=== PATIENT | female | born 1965 | race Caucasian/White ===

== ENCOUNTER 2017-10-17 08:15 | Emergency (ER) | payer OTHER, BC ==
--- NOTE | 2017-10-17 09:34 | EDM.PDOC ---
<Jaye Barajas - Last Filed: 10/17/17 11:23> ED HPI GENERAL MEDICAL PROBLEM - General Chief Complaint: Lower Extremity Injury/Pain Stated Complaint: L LEG INJURY Time Seen by Provider: 10/17/17 08:33 Source of Information: Reports: Patient History Limitations: Reports: No Limitations - History of Present Illness INITIAL COMMENTS - FREE TEXT/NARRATIVE: Patient is a 51-year-old female who presents after a fall this morning around 0800 outside her work. She states she fell on the ice and twisted her left ankle. She is unsure of which way the ankle turned but she does reports falling onto the ankle. She denies hitting her head, hip or other extremities. She denies pain other then the left ankle. She has not tried to put weight on the ankle. She states that her pain is about 6/10 at rest and 8/10 if she tries to move it. Left Ankle Pain Score (Numeric/FACES): 8 - Related Data Allergies Allergy/AdvReac Type Severity Reaction Status Date / Time No Known Allergies Allergy Verified 10/17/17 08:31 Home Meds: Home Meds Aspirin [Ecotrin] 81 mg PO DAILY 10/17/17 [History] Cholecalciferol (Vitamin D3) [Vitamin D3] 400 unit PO DAILY 10/17/17 [History] Magnesium 200 mg PO DAILY 10/17/17 [History] Multivitamin [Multi-Vitamin Daily] 1 each PO DAILY 10/17/17 [History] Tamoxifen [Nolvadex] 20 mg PO DAILY 10/17/17 [History] oxyCODONE HCl/Acetaminophen [Percocet 5-325 mg Tablet] 1 - 2 each PO Q6HR PRN # 20 tablet 10/17/17 [Rx] Past Medical History HEENT History: Reports: Impaired Vision Gastrointestinal History: Reports: Other (See Below) Other Gastrointestinal History: ulcerative colitis Oncologic (Cancer) History: Reports: Breast - Infectious Disease History Infectious Disease History: Reports: Chicken Pox - Past Surgical History HEENT Surgical History: Reports: Oral Surgery Social & Family History - Tobacco Use Smoking Status *Q: Never Smoker - Caffeine Use Caffeine Use: Reports: Coffee - Recreational Drug Use Recreational Drug Use: No Review of Systems - Review of Systems Review Of Systems: See Below Constitutional: Reports: No Symptoms Respiratory: Reports: No Symptoms Cardiovascular: Reports: No Symptoms Musculoskeletal: Reports: Joint Swelling (left ankle), Other (left ankle pain) Skin: Reports: Bruising (left lateral ankle) Neurological: Denies: Numbness, Tingling Psychiatric: Reports: No Symptoms ED EXAM, GENERAL - Physical Exam Exam: See Below Exam Limited By: No Limitations General Appearance: Alert, WD/WN, No Apparent Distress Head: Atraumatic, Normocephalic Neck: Non-Tender Respiratory/Chest: No Respiratory Distress Cardiovascular: Regular Rate, Rhythm Peripheral Pulses: 2+: Posterior Tibial (L), Dorsalis Pedis (L) Extremities: Joint Swelling (left ankle), Other (left lateral ankle pain with minimal palpation, no pain in the left foot or proximal fibula, no range of motion due to pain) Neurological: Alert, Oriented, CN II-XII Intact, Normal Cognition Skin Exam: Ecchymosis (left ankle) Course - Vital Signs Last Recorded V/S: Last Vital Signs Temp 98.0 F 10/17/17 08:34 Pulse 98 10/17/17 08:34 Resp 18 10/17/17 08:34 BP 160/90 H 10/17/17 08:34 Pulse Ox 98 10/17/17 08:34 - Orders/Labs/Meds Orders: Active Orders 24 hr Category Date Time Status Peripheral IV Care [RC] . DIRECTED Care 10/17/17 10:20 Active Lactated Ringers [Ringers, Lactated] 1,000 ml Med 10/17/17 10:30 Active IV ASDIRECTED Sodium Chloride 0.9% [Saline Flush] Med 10/17/17 10:20 Active 10 ml FLUSH ASDIRECTED PRN Peripheral IV Insertion Adult [OM.PC] Routine Oth 10/17/17 10:20 Ordered Medication Orders Lactated Ringer's (Ringers, Lactated) 1,000 mls @ 100 mls/hr IV ASDIRECTED ARNAUD Last Admin: 10/17/17 10:45 Dose: 100 mls/hr Sodium Chloride (Saline Flush) 10 ml FLUSH ASDIRECTED PRN PRN Reason: Keep Vein Open Last Admin: 10/17/17 11:13 Dose: 10 ml Meds: Medications Generic Name Dose Route Start Last Admin Trade Name Freq PRN Reason Stop Dose Admin Lactated Ringer's 1,000 mls @ 100 mls/hr 10/17/17 10:30 10/17/17 10:45 Ringers, Lactated IV 100 mls/hr ASDIRECTED ARNAUD Administration Sodium Chloride 10 ml 10/17/17 10:20 10/17/17 11:13 Saline Flush FLUSH 10 ml ASDIRECTED PRN Administration Keep Vein Open Discontinued Medications Generic Name Dose Route Start Last Admin Trade Name Phongq PRN Reason Stop Dose Admin Fentanyl 100 mcg 10/17/17 10:21 10/17/17 10:50 Sublimaze IVPUSH 10/17/17 10:22 100 mcg ONETIME ONE Administration Fentanyl 50 mcg 10/17/17 11:02 10/17/17 11:07 Sublimaze IVPUSH 10/17/17 11:03 50 mcg ONETIME ONE Administration Fentanyl Confirm 10/17/17 11:08 10/17/17 11:13 Sublimaze Administered 10/17/17 11:09 Not Given Dose 100 mcg .ROUTE .STK-MED ONE Hydromorphone HCl 0.5 mg 10/17/17 11:20 10/17/17 11:25 Dilaudid IVPUSH 10/17/17 11:21 0.5 mg ONETIME ONE Administration Ketorolac Tromethamine 30 mg 10/17/17 11:20 10/17/17 11:26 Toradol IVPUSH 10/17/17 11:21 30 mg ONETIME ONE Administration Midazolam HCl 2 mg 10/17/17 10:21 10/17/17 11:13 Versed 1 Mg/Ml IVPUSH 10/17/17 10:22 Not Given ONETIME ONE Midazolam HCl Confirm 10/17/17 10:49 10/17/17 11:13 Versed 1 Mg/Ml Administered 10/17/17 10:50 Not Given Dose 6 mg .ROUTE .STK-MED ONE Midazolam HCl 2 mg 10/17/17 11:14 10/17/17 10:55 Versed 1 Mg/Ml IVPUSH 10/17/17 11:15 1 mg ONETIME STA Administration - Re-Assessments/Exams Free Text/Narrative Re-Assessment/Exam: 10/17/17 10:00 Left ankle xray showed 1. Unstable ankle mortise with fractures of the posterior malleolus and distal one third diaphyseal fracture of the fibula. 2. Soft tissue swelling and plantar spur Departure - Departure Disposition: Home, Self-Care 01 Clinical Impression: Fibula fracture Qualifiers: Encounter type: initial encounter Fibula location: shaft Fracture type: closed Fracture morphology: other fracture Laterality: left Qualified Code(s): S82.492A - Other fracture of shaft of left fibula, initial encounter for closed fracture Fracture of posterior malleolus of right tibia Qualifiers: Encounter type: initial encounter Fracture type: closed Qualified Code(s): S82.391A - Other fracture of lower end of right tibia, initial encounter for closed fracture - Discharge Information Prescriptions: oxyCODONE HCl/Acetaminophen [Percocet 5-325 mg Tablet] 1 - 2 each PO Q6HR PRN # 20 tablet PRN Reason: Pain Referrals: PCP,None [Primary Care Provider] - Leonel Rojas MD [Physician] - 1 Day Forms: ED Department Discharge Additional Instructions: Elevate your leg above your heart as much as you can for the next couple of days. Ice your ankle for 15 minutes every other hour while awake for 2 days. Take the percocet as needed for any pain. Follow up with Dr Rojas tomorrow at 9am. Please return if you are worse. - My Orders Last 24 Hours: My Active Orders 10/17/17 10:20 Peripheral IV Care [RC] . DIRECTED Sodium Chloride 0.9% [Saline Flush] 10 ml FLUSH ASDIRECTED PRN Peripheral IV Insertion Adult [OM.PC] Routine 10/17/17 10:30 Lactated Ringers [Ringers, Lactated] 1,000 ml IV ASDIRECTED - Assessment/Plan Last 24 Hours: My Active Orders 10/17/17 10:20 Peripheral IV Care [RC] . DIRECTED Sodium Chloride 0.9% [Saline Flush] 10 ml FLUSH ASDIRECTED PRN Peripheral IV Insertion Adult [OM.PC] Routine 10/17/17 10:30 Lactated Ringers [Ringers, Lactated] 1,000 ml IV ASDIRECTED <Aldo Leahy - Last Filed: 10/17/17 11:56> ED HPI GENERAL MEDICAL PROBLEM - General Source of Information: Reports: Patient History Limitations: Reports: No Limitations - History of Present Illness Onset: Sudden Duration: Minutes: Location: Reports: Lower Extremity, Left (ankle) Quality: Reports: Sharp Severity: Moderate Improves with: Reports: Immobilization Worsens with: Reports: Movement Context: Reports: Trauma (she fell coming out of work) Associated Symptoms: Reports: No Other Symptoms Review of Systems - Review of Systems Review Of Systems: See Below Constitutional: Reports: No Symptoms Ears: Reports: No Symptoms Nose: Reports: No Symptoms Mouth/Throat: Reports: No Symptoms Respiratory: Reports: No Symptoms Cardiovascular: Reports: No Symptoms GI/Abdominal: Reports: No Symptoms Genitourinary: Reports: No Symptoms Musculoskeletal: Reports: Joint Swelling, Other ED EXAM, GENERAL - Physical Exam Exam: See Below Exam Limited By: No Limitations General Appearance: Alert, WD/WN, No Apparent Distress Eye Exam: Right Eye: Papilledema Ears: Normal External Exam Nose: Normal Inspection Head: Atraumatic, Normocephalic Neck: Non-Tender Respiratory/Chest: No Respiratory Distress, Lungs Clear, Normal Breath Sounds Cardiovascular: Regular Rate, Rhythm, No Edema, No Murmur GI/Abdominal: Soft, Non-Tender, No Organomegaly, No Mass Extremities: Joint Swelling (left ankle with slight deformity) Neurological: Alert, Oriented, No Motor/Sensory Deficits ED TRAUMA EXTREMITY PROCEDURES - Joint Reduction Site: Other (left ankle) Sedation: Conscious Sedation Pre-Procedure NV Status: Normal Post-Procedure NV Status: Normal Technique: Traction/Counter Traction Number of Attempts: 1 Post-Reduction Imaging: Completely Reduced Joint Reduction Complications: No - Splinting Left Lower Extremity Splint Site: ankle Pre-Procedure NV Status: Normal Post-Procedure NV Status: Normal Splint Material: Fiberglass Splint Design: Stirrup, Posterior Applied & Form Fitted By: Provider Provider Post-Splint Application NV Check: NV Status Normal, Good Position Complications: No Course - Orders/Labs/Meds Orders: Active Orders 24 hr Category Date Time Status Peripheral IV Care [RC] . DIRECTED Care 10/17/17 10:20 Active Lactated Ringers [Ringers, Lactated] 1,000 ml Med 10/17/17 10:30 Active IV ASDIRECTED Sodium Chloride 0.9% [Saline Flush] Med 10/17/17 10:20 Active 10 ml FLUSH ASDIRECTED PRN Peripheral IV Insertion Adult [OM.PC] Routine Oth 10/17/17 10:20 Ordered Medication Orders Lactated Ringer's (Ringers, Lactated) 1,000 mls @ 100 mls/hr IV ASDIRECTED ARNAUD Last Admin: 10/17/17 10:45 Dose: 100 mls/hr Sodium Chloride (Saline Flush) 10 ml FLUSH ASDIRECTED PRN PRN Reason: Keep Vein Open Last Admin: 10/17/17 11:13 Dose: 10 ml Meds: Medications Generic Name Dose Route Start Last Admin Trade Name Phongq PRN Reason Stop Dose Admin Lactated Ringer's 1,000 mls @ 100 mls/hr 10/17/17 10:30 10/17/17 10:45 Ringers, Lactated IV 100 mls/hr ASDIRECTED ARNAUD Administration Sodium Chloride 10 ml 10/17/17 10:20 10/17/17 11:13 Saline Flush FLUSH 10 ml ASDIRECTED PRN Administration Keep Vein Open Discontinued Medications Generic Name Dose Route Start Last Admin Trade Name Phongq PRN Reason Stop Dose Admin Fentanyl 100 mcg 10/17/17 10:21 10/17/17 10:50 Sublimaze IVPUSH 10/17/17 10:22 100 mcg ONETIME ONE Administration Fentanyl 50 mcg 10/17/17 11:02 10/17/17 11:07 Sublimaze IVPUSH 10/17/17 11:03 50 mcg ONETIME ONE Administration Fentanyl Confirm 10/17/17 11:08 10/17/17 11:13 Sublimaze Administered 10/17/17 11:09 Not Given Dose 100 mcg .ROUTE .STK-MED ONE Hydromorphone HCl 0.5 mg 10/17/17 11:20 10/17/17 11:25 Dilaudid IVPUSH 10/17/17 11:21 0.5 mg ONETIME ONE Administration Ketorolac Tromethamine 30 mg 10/17/17 11:20 10/17/17 11:26 Toradol IVPUSH 10/17/17 11:21 30 mg ONETIME ONE Administration Midazolam HCl 2 mg 10/17/17 10:21 10/17/17 11:13 Versed 1 Mg/Ml IVPUSH 10/17/17 10:22 Not Given ONETIME ONE Midazolam HCl Confirm 10/17/17 10:49 10/17/17 11:13 Versed 1 Mg/Ml Administered 10/17/17 10:50 Not Given Dose 6 mg .ROUTE .STK-MED ONE Midazolam HCl 2 mg 10/17/17 11:14 10/17/17 10:55 Versed 1 Mg/Ml IVPUSH 10/17/17 11:15 1 mg ONETIME STA Administration - Re-Assessments/Exams Free Text/Narrative Re-Assessment/Exam: 10/17/17 09:46 I ordered an x-ray of her ankle. 10/17/17 11:46 There is a fibular fracture and posterior malleolar fracture. I talked to Dr Rojas and he wanted me to reduce her ankle and splint it and he will see her tomorrow. He came and saw the patient. I gave her versed 2mg IV and fentanyl 100mcg IV. She had more pain after that so I gave her dilaudid 0.5mg IV and toradol 30mg IV. Departure - Departure Time of Disposition: 11:50 Condition: Good - My Orders Last 24 Hours: My Active Orders 10/17/17 10:20 Peripheral IV Care [RC] . DIRECTED Sodium Chloride 0.9% [Saline Flush] 10 ml FLUSH ASDIRECTED PRN Peripheral IV Insertion Adult [OM.PC] Routine 10/17/17 10:30 Lactated Ringers [Ringers, Lactated] 1,000 ml IV ASDIRECTED - Assessment/Plan Last 24 Hours: My Active Orders 10/17/17 10:20 Peripheral IV Care [RC] . DIRECTED Sodium Chloride 0.9% [Saline Flush] 10 ml FLUSH ASDIRECTED PRN Peripheral IV Insertion Adult [OM.PC] Routine 10/17/17 10:30 Lactated Ringers [Ringers, Lactated] 1,000 ml IV ASDIRECTED
--- NOTE | 2017-10-17 09:43 | CR ---
Left ankle: 3 views of the left ankle were obtained. Comparison: No prior ankle study. Fracture is identified within the distal one third diaphysis of the fibula. Ankle mortise is asymmetric with shifting of the tibia in a medial direction in relation to the talus. Posterior malleolar fracture is noted. Well-corticated bony density is seen off the medial talus which is old. Diffuse soft tissue swelling is seen. Lanter spur is noted. Impression: 1. Unstable ankle mortise with fractures of the posterior malleolus and distal one third diaphyseal fracture of the fibula. 2. Soft tissue swelling and plantar spur. Diagnostic code #3
[2017-10-17] MEDS ORDERED: Sodium Chloride 0.9% 10 ML Syringe FLUSH PRN (10:20)
[2017-10-17] MEDS ORDERED: fentaNYL 100 MCG/2 ML SDV IVPUSH ONE ×2 (10:21→11:02)
[2017-10-17] MEDS ORDERED: Midazolam 1 MG/ML 5 ML SDV IVPUSH ONE (10:21)
[2017-10-17] MEDS ORDERED: Lactated Ringers 1,000 ML IV SCH (10:30)
[2017-10-17] MEDS ORDERED: Midazolam 1 MG/ML 2 ML SDV ONE (10:49)
[2017-10-17] MEDS: Midazolam 1 MG/ML 2 ML SDV IVPUSH STA ×2 (10:52→10:55)
[2017-10-17] MEDS ORDERED: fentaNYL 100 MCG/2 ML SDV ONE (11:08)
[2017-10-17] MEDS ORDERED: HYDROmorphone 0.5 MG/0.5 ML SYRINGE IVPUSH ONE (11:20)
[2017-10-17] MEDS ORDERED: Ketorolac 30 MG/ML SDV IVPUSH ONE (11:20)
--- NOTE | 2017-10-17 11:42 | CR ---
Left ankle: Two views of the left ankle were obtained. Comparison: Prior ankle study performed on the same day (9:00 a.m.). Ankle mortise has been restored to normal alignment. Comminuted fracture within the distal one third diaphysis of the fibula is noted. Slightly displaced posterior malleolar fracture noted. Fiberglass cast or splint is in place. Impression: 1. Ankle mortise now appears normal. Fibular fracture and posterior malleolar fracture again noted. 2. Fiberglass cast or splint is in place. Diagnostic code #2
== END 2017-10-17 12:30 | disposition home or self-care (01) ==
LOC: JD.ED 08:15
DX: S82.832A Other fracture of upper and lower end of left fibula, initial encounter for closed fracture (principal); S82.391A Other fracture of lower end of right tibia, initial encounter for closed fracture; Z79.82 Long term (current) use of aspirin; Z79.899 Other long term (current) drug therapy; W00.9XXA Unspecified fall due to ice and snow, initial encounter
CPT/HCPCS: 27840; 73600; 73610; 96361; 96374; 96375; 99152; 99153; 99284; J1170; J1885; J2250; J3010; J7050; J7120; 27768; 29515; 99283-25

== ENCOUNTER 2017-10-24 13:21 | Emergency (ER) | payer OTHER ==
[2017-10-24] MEDS: Sodium Chloride 0.9% 10 ML Syringe FLUSH PRN ×2 (13:39→15:01)
[2017-10-24] MEDS ORDERED: HYDROmorphone 0.5 MG/0.5 ML SYRINGE IVPUSH ONE (14:49)
--- NOTE | 2017-10-24 15:08 | EDM.PDOC ---
ED HPI GENERAL MEDICAL PROBLEM - General Chief Complaint: Cardiovascular Problem Stated Complaint: CAME FROM SURGERY Time Seen by Provider: 10/24/17 13:23 Source of Information: Reports: Patient, Provider History Limitations: Reports: No Limitations - History of Present Illness INITIAL COMMENTS - FREE TEXT/NARRATIVE: The patient fell last week and she fractured her left distal fibula and posterior malleolus. She had surgery today and everything went well with the surgery but she did have some runs of V-tach. She had medical screening for the surgery and an EKG and everything checked out okay. She has no complaints. She has never had this happen before. Onset: Sudden Duration: Hour(s): Severity: Moderate Improves with: Reports: None Worsens with: Reports: None Associated Symptoms: Reports: No Other Symptoms Left Ankle Pain Score (Numeric/FACES): 4 - Related Data Allergies Allergy/AdvReac Type Severity Reaction Status Date / Time wool Allergy Hives Verified 10/24/17 13:25 Home Meds: Home Meds Aspirin [Ecotrin] 81 mg PO DAILY 10/17/17 [History] Cholecalciferol (Vitamin D3) [Vitamin D3] 400 unit PO DAILY 10/17/17 [History] Magnesium 200 mg PO DAILY 10/17/17 [History] Multivitamin [Multi-Vitamin Daily] 1 each PO DAILY 10/17/17 [History] Tamoxifen [Nolvadex] 20 mg PO DAILY 10/17/17 [History] oxyCODONE HCl/Acetaminophen [Percocet 5-325 mg Tablet] 1 - 2 each PO Q6HR PRN # 20 tablet 10/17/17 [Rx] Acetaminophen/HYDROcodone [[place] 325-5 MG] 1 - 2 tab PO Q6H PRN #40 tablet 10/24 [Rx] Rivaroxaban [Xarelto] 10 mg PO DAILY #42 tablet 10/24/17 [Rx] Past Medical History HEENT History: Reports: Impaired Vision Cardiovascular History: Reports: None Respiratory History: Reports: None Gastrointestinal History: Reports: Other (See Below) Other Gastrointestinal History: ulcerative colitis Genitourinary History: Reports: None PAEDIATRIC THORACIC PHYSICIAN History: Reports: None Musculoskeletal History: Reports: Other (See Below) Other Musculoskeletal History: left knee pain, left ankle fracture Neurological History: Reports: None Psychiatric History: Reports: None Endocrine/Metabolic History: Reports: None Hematologic History: Reports: None Immunologic History: Reports: Immunosuppression, Other (See Below) Other Immunologic History: patient currently taking chemotherapy via port every 3 weeks for breast cancer (last infusion was October 05) Oncologic (Cancer) History: Reports: Breast Dermatologic History: Reports: None - Infectious Disease History Infectious Disease History: Reports: Chicken Pox - Past Surgical History Head Surgeries/Procedures: Reports: None HEENT Surgical History: Reports: Oral Surgery Cardiovascular Surgical History: Reports: None Respiratory Surgical History: Reports: None GI Surgical History: Reports: Colonoscopy Female Surgical History: Reports: Breast Biopsy Endocrine Surgical History: Reports: None Neurological Surgical History: Reports: None Musculoskeletal Surgical History: Reports: Other (See Below) Other Musculoskeletal Surgeries/Procedures:: left ankle repair Oncologic Surgical History: Reports: None Social & Family History - Tobacco Use Smoking Status *Q: Never Smoker Second Hand Smoke Exposure: No - Caffeine Use Caffeine Use: Reports: Coffee - Recreational Drug Use Recreational Drug Use: No ED ROS GENERAL - Review of Systems Review Of Systems: See Below Constitutional: Reports: No Symptoms HEENT: Reports: No Symptoms Respiratory: Reports: No Symptoms Cardiovascular: Reports: Palpitations Endocrine: Reports: No Symptoms GI/Abdominal: Reports: No Symptoms : Reports: No Symptoms Musculoskeletal: Reports: No Symptoms Skin: Reports: No Symptoms Neurological: Reports: No Symptoms ED EXAM, GENERAL - Physical Exam Exam: See Below Exam Limited By: No Limitations General Appearance: Alert, No Apparent Distress Ears: Normal External Exam Nose: Normal Inspection Head: Atraumatic, Normocephalic Neck: Normal Inspection Respiratory/Chest: No Respiratory Distress, Lungs Clear, Normal Breath Sounds Cardiovascular: Regular Rate, Rhythm, No Edema, No Murmur GI/Abdominal: Soft, Non-Tender, No Organomegaly, No Mass Back Exam: Normal Inspection Extremities: Normal Inspection EKG INTERPRETATION EKG Date: 10/24/17 Time: 13:55 Rhythm: NSR Rate (Beats/Min): 74 [place]: Normal P-Wave: Present QRS: Normal ST-T: Normal QT: Normal EKG Interpretation Comments: Unifocal PVCs Course - Vital Signs Last Recorded V/S: Last Vital Signs Temp 97.4 F 10/24/17 13:25 Pulse 80 10/24/17 13:25 Resp 16 10/24/17 13:25 BP 157/73 H 10/24/17 13:25 Pulse Ox 93 L 10/24/17 13:39 - Orders/Labs/Meds Orders: Active Orders 24 hr Category Date Time Status Cardiac Monitoring [RC] . DIRECTED Care 10/24/17 13:30 Active EKG Documentation Completion [RC] STAT Care 10/24/17 13:30 Active Holter Monitor 48 Hours [RC] .PRN Care 10/24/17 15:11 Active Oxygen Therapy [RC] PRN Care 10/24/17 13:30 Active Peripheral IV Care [RC] . DIRECTED Care 10/24/17 13:30 Active Sodium Chloride 0.9% [Saline Flush] Med 10/24/17 13:29 Active 10 ml FLUSH ASDIRECTED PRN Peripheral IV Insertion Adult [OM.PC] Stat Oth 10/24/17 13:29 Ordered Medication Orders Sodium Chloride (Saline Flush) 10 ml FLUSH ASDIRECTED PRN PRN Reason: Keep Vein Open Last Admin: 10/24/17 15:01 Dose: 10 ml Admin: 10/24/17 13:39 Dose: 10 ml Labs: Laboratory Tests 10/24/17 10/24/17 Range/Units 13:45 13:45 WBC 9.67 (3.98-10.04) K/mm3 RBC 4.33 (3.98-5.22) M/mm3 Hgb 12.1 (11.2-15.7) gm/L Hct 37.3 (34.1-44.9) % MCV 86.1 (79.4-94.8) fl MCH 27.9 (25.6-32.2) pg MCHC 32.4 (32.2-35.5) g/dl RDW Std Deviation 43.9 (36.4-46.3) fL Plt Count 290 (182-369) K/mm3 MPV 9.4 (9.4-12.3) fl Neut % (Auto) 87.8 H (34.0-71.1) % Lymph % (Auto) 8.6 L (19.3-51.7) % [place]le % (Auto) 3.2 L (4.7-12.5) % Eos % (Auto) 0.1 L (0.7-5.8) Baso % (Auto) 0.2 (0.1-1.2) % Neut # (Auto) 8.49 H (1.56-6.13) K/mm3 Lymph # (Auto) 0.83 L (1.18-3.74) K/mm3 [place] # (Auto) 0.31 (0.24-0.36) K/mm3 Eos # (Auto) 0.01 L (0.04-0.36) K/mm3 Baso # (Auto) 0.02 (0.01-0.08) K/mm3 Manual Slide Review Normal smear Sodium 142 (136-145) mEq/L Potassium 3.9 (3.5-5.1) mEq/L Chloride 104 (98-107) mEq/L Carbon Dioxide 28 (21-32) mEq/L Anion Gap 13.9 (5-15) BUN 9 (7-18) mg/dL Creatinine 0.6 (0.55-1.02) mg/dL Est Cr Clr Drug Dosing 89.70 mL/min Estimated GFR (MDRD) > 60 (>60) mL/min BUN/Creatinine Ratio 15.0 (14-18) Glucose 142 H (74-106) mg/dL Calcium 8.9 (8.5-10.1) mg/dL Total Bilirubin 0.3 (0.2-1.0) mg/dL AST 29 (15-37) U/L ALT 45 (14-59) U/L Alkaline Phosphatase 67 (46-116) U/L Troponin I < 0.017 (0.00-0.056) ng/mL Total Protein 6.7 (6.4-8.2) g/dl Albumin 3.1 L (3.4-5.0) g/dl Globulin 3.6 gm/dL Albumin/Globulin Ratio 0.9 L (1-2) TSH 3rd Generation 0.699 (0.358-3.74) uIU/mL Meds: Medications Generic Name Dose Route Start Last Admin Trade Name Freq PRN Reason Stop Dose Admin Sodium Chloride 10 ml 10/24/17 13:29 10/24/17 15:01 Saline Flush FLUSH 10 ml ASDIRECTED PRN Administration Keep Vein Open Discontinued Medications Generic Name Dose Route Start Last Admin Trade Name Freq PRN Reason Stop Dose Admin Hydromorphone HCl 0.5 mg 10/24/17 14:49 10/24/17 14:59 Dilaudid IVPUSH 10/24/17 14:50 0.5 mg ONETIME ONE Administration - Re-Assessments/Exams Free Text/Narrative Re-Assessment/Exam: 10/24/17 15:06 The patient came from PACU. She is feeling good. Her EKG shows a NSR with no acute changes. She did have 1 PVC. Her CBC and CMP look good. Her troponin is negative and her TSH is negative. She has been monitored here for a few hours and she did eat. I feel it is safe to go home. I will have her wear a holter monitor for a couple of days. Departure - Departure Time of Disposition: 15:30 Disposition: Home, Self-Care 01 Condition: Good Clinical Impression: Palpitations Referrals: PCP,Shira [Primary Care Provider] - Mercedes Art PA [Physician French Lecturer] - 1 Week Forms: ED Department Discharge Additional Instructions: Wear the holter monitor for 2 days. Take your medication as prescribed. Please follow up with Mercedes Art within a week. Please return if you have any other problems. - My Orders Last 24 Hours: My Active Orders 10/24/17 13:29 Sodium Chloride 0.9% [Saline Flush] 10 ml FLUSH ASDIRECTED PRN Peripheral IV Insertion Adult [OM.PC] Stat 10/24/17 13:30 Cardiac Monitoring [RC] . DIRECTED EKG Documentation Completion [RC] STAT Oxygen Therapy [RC] PRN Peripheral IV Care [RC] . DIRECTED 10/24/17 15:11 Holter Monitor 48 Hours [RC] .PRN - Assessment/Plan Last 24 Hours: My Active Orders 10/24/17 13:29 Sodium Chloride 0.9% [Saline Flush] 10 ml FLUSH ASDIRECTED PRN Peripheral IV Insertion Adult [OM.PC] Stat 10/24/17 13:30 Cardiac Monitoring [RC] . DIRECTED EKG Documentation Completion [RC] STAT Oxygen Therapy [RC] PRN Peripheral IV Care [RC] . DIRECTED 10/24/17 15:11 Holter Monitor 48 Hours [RC] .PRN
== END 2017-10-24 16:00 | disposition home or self-care (01) ==
LOC: JD.ED 13:21
DX: R00.2 Palpitations (principal); S82.832D Other fracture of upper and lower end of left fibula, subsequent encounter for closed fracture with routine healing; Z79.82 Long term (current) use of aspirin; Z79.899 Other long term (current) drug therapy; W19.XXXD Unspecified fall, subsequent encounter
CPT/HCPCS: 36415; 80053; 84443; 84484; 85025; 93005; 93225; 93226; 96374; 99285; J1170; J7050; 93010; 99284-25

== ENCOUNTER → 2017-10-24 | Day surgery (SDC) | payer OTHER ==
[~2017-10-24] MED LIST: Acetaminophen/HYDROcodone 325-5 MG Tab PO PRN; Bupivacaine 0.25% 30 ML SDV ONE; Dexamethasone 4 MG/ML SDV ONE; HYDROmorphone 0.5 MG/0.5 ML Syringe IVPUSH ONE; HYDROmorphone 0.5 MG/0.5 ML Syringe ONE; Ketamine 500 mg/10 ML MDV ONE; Lactated Ringers 1,000 ML IV SCH; Lactated Ringers 1,000 ML ONE; Lidocaine 1%/Sod Bicarbonate in NS 8.4% 1 ML Syringe IDERM PRN; Metoprolol Tartrate 5 MG/5 ML SDV IVPUSH ONE; Metoprolol Tartrate 5 MG/5 ML SDV ONE; Midazolam 1 MG/ML 2 ML SDV ONE; Ondansetron 4 MG/2 ML SDV ONE; Propofol 200 MG/20 ML SDV ONE; Sodium Chloride 0.9% 10 ML Syringe FLUSH PRN; ceFAZolin 1 GM Vial ONE; diphenhydrAMINE 50 MG/ML SDV IVPUSH PRN; fentaNYL 100 MCG/2 ML SDV IVPUSH PRN; fentaNYL 100 MCG/2 ML SDV ONE; fentaNYL 250 MCG/5 ML SDV ONE
--- NOTE | 2017-10-24 07:45 | PCM.PREANE ---
Preanesthetic Assessment - Anesthesia/Transfusion/Family Hx Anesthesia History: Prior Anesthesia Without Reaction Family History of Anesthesia Reaction: No Transfusion History: No Prior Transfusion(s) - Review of Systems General: Other (breast ca on oral tx, last chemo tx 01/2017, port in place) Pulmonary: Other (cxr shows pulmonary nodules that are stable and no acute changes ) Cardiovascular: Other (EKG shows sr, 08/25/17 EF estimated at 54%) Gastrointestinal: Other (ulcerative colitis) Neurological: Numbness (left hand numbness since starting chemo) Other: Reports: None - Physical Assessment NPO Status Date: 10/23/17 NPO Status Time: 21:00 Pulse: 84 O2 Sat by Pulse Oximetry: 93 Respiratory Rate: 16 Blood Pressure: 147/82 Weight: 105 kg ASA Class: 2 Mental Status: Alert & Oriented x3 Airway Class: Mallampati = 2 Dentition: Reports: Normal Dentition Thyro-Mental Finger Breadths: 3 Mouth Opening Finger Breadths: 3 ROM/Head Extension: Full Lungs: Clear to Auscultation, Normal Respiratory Effort Cardiovascular: Regular Rate, Regular Rhythm - Allergies Allergies/Adverse Reactions: Allergies Allergy/AdvReac Type Severity Reaction Status Date / Time No Known Allergies Allergy Verified 10/21/17 13:33 - Blood Blood Available: No Product(s) Available: None - Acknowledgements Anesthesia Type Planned: General Anesthesia Pt an Appropriate Candidate for the Planned Anesthesia: Yes Alternatives and Risks of Anesthesia Discussed w Pt/Guardian: Yes Pt/Guardian Understands and Agrees with Anesthesia Plan: Yes PreAnesthesia Questionnaire HEENT History: Reports: Impaired Vision Cardiovascular History: Reports: None Respiratory History: Reports: None Gastrointestinal History: Reports: Other (See Below) Other Gastrointestinal History: ulcerative colitis Genitourinary History: Reports: None 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 Musculoskeletal History: Reports: Other (See Below) Other Musculoskeletal History: left knee pain, left ankle fracture Neurological History: Reports: None Psychiatric History: Reports: None Endocrine/Metabolic History: Reports: None Hematologic History: Reports: None Immunologic History: Reports: Immunosuppression, Other (See Below) Other Immunologic History: patient currently taking chemotherapy via port every 3 weeks for breast cancer (last infusion was October 05) Oncologic (Cancer) History: Reports: Breast Dermatologic History: Reports: None - Infectious Disease History Infectious Disease History: Reports: Chicken Pox - Past Surgical History Head Surgeries/Procedures: Reports: None HEENT Surgical History: Reports: Oral Surgery Cardiovascular Surgical History: Reports: None Respiratory Surgical History: Reports: None GI Surgical History: Reports: Colonoscopy Female Surgical History: Reports: Breast Biopsy Male Surgical History: Reports: None Endocrine Surgical History: Reports: None Neurological Surgical History: Reports: None Musculoskeletal Surgical History: Reports: None Oncologic Surgical History: Reports: None - SUBSTANCE USE Smoking Status *Q: Never Smoker Recreational Drug Use History: No - HOME MEDS Home Medications: Home Meds RX: Aspirin [Ecotrin] 81 mg PO DAILY 10/17/17 [History] RX: Cholecalciferol (Vitamin D3) [Vitamin D3] 400 unit PO DAILY 10/17/17 [ History] RX: Magnesium 200 mg PO DAILY 10/17/17 [History] RX: Multivitamin [Multi-Vitamin Daily] 1 each PO DAILY 10/17/17 [History] RX: Tamoxifen [Nolvadex] 20 mg PO DAILY 10/17/17 [History] RX: oxyCODONE HCl/Acetaminophen [Percocet 5-325 mg Tablet] 1 - 2 each PO Q6HR PRN #20 tablet 10/17/17 [Rx] Acetaminophen/HYDROcodone [[place] 325-5 MG] 1 - 2 tab PO Q6H PRN #40 tablet 10/24 [Rx] Rivaroxaban [Xarelto] 10 mg PO DAILY #42 tablet 10/24/17 [Rx] - CURRENT (IN HOUSE) MEDS Current Meds: Current Medications Lactated Ringer's (Ringers, Lactated) 1,000 mls @ 125 mls/hr IV ASDIRECTED ARNAUD Stop: 10/24/17 23:00 Lidocaine/Sodium Bicarbonate (Buffered Lidocaine 1% In Ns 8.4%) 0.25 ml IDERM ONETIME PRN PRN Reason: Prior to IV Start Stop: 10/24/17 18:00 Sodium Chloride (Saline Flush) 10 ml FLUSH ASDIRECTED PRN PRN Reason: Keep Vein Open Stop: 10/24/17 18:00 Discontinued Medications Cefazolin Sodium (Ancef) Confirm Administered Dose 2 gm .ROUTE .STK-MED ONE Stop: 10/24/17 07:07 Dexamethasone (Dexamethasone) Confirm Administered Dose 4 mg .ROUTE .STK-MED ONE Stop: 10/24/17 07:07 Fentanyl (Sublimaze) Confirm Administered Dose 250 mcg .ROUTE .STK-MED ONE Stop: 10/24/17 07:08 Midazolam HCl (Versed 1 Mg/Ml) Confirm Administered Dose 2 mg .ROUTE .STK-MED ONE Stop: 10/24/17 07:08 Ondansetron HCl (Zofran) Confirm Administered Dose 4 mg .ROUTE .STK-MED ONE Stop: 10/24/17 07:07 Propofol (Diprivan 20 Ml) Confirm Administered Dose 200 mg .ROUTE .STK-MED ONE Stop: 10/24/17 07:07
--- NOTE | 2017-10-24 10:04 | PCM.POSTAN ---
POST ANESTHESIA ASSESSMENT - MENTAL STATUS Mental Status: Alert, Oriented - VITAL SIGNS Pulse Rate: 108 SaO2: 97 Resp Rate: 19 Blood Pressure: 120/94 Temperature: 37.1 C - RESPIRATORY Respiratory Status: Respiratory Rate WNL, Airway Patent, O2 Saturation Stable, Supplemental Oxygen - CARDIOVASCULAR CV Status: Pulse Rate WNL, Blood Pressure Stable - GASTROINTESTINAL GI Status: No Symptoms - PAIN Pain Score: 5 - POST OP HYDRATION Hydration Status: Adequate & Stable
[2017-10-24] MEDS: fentaNYL 100 MCG/2 ML SDV IVPUSH PRN ×2 (10:05→10:15)
--- NOTE | 2017-10-24 10:05 | CR ---
Left ankle: Seven fluoroscopic spot views utilizing C-arm device were obtained of the left ankle. Comparison: Prior left ankle study of 10/17/17. Study shows fixation of distal fibular shaft fracture with plate and screws. Ankle mortise is symmetric. Fluoroscopy time given as 40.0 seconds. Impression: 1. Fixation of previous fibular shaft fracture. Diagnostic code #2
[2017-10-24] MEDS: HYDROmorphone 0.5 MG/0.5 ML Syringe IVPUSH PRN ×2 (10:51→11:08)
--- NOTE | 2017-11-01 06:27 | PCM.OPNOTE ---
- General Post-Op/Procedure Note Date of Surgery/Procedure: 10/24/17 Operative Procedure(s): open reduction internal fixation of left fibular shaft fracture and left ankle syndesmosis Pre Op Diagnosis: left trimalleolar ankle equivalent fracture Post-Op Diagnosis: Same Anesthesia Technique: General LMA, Local Primary Surgeon: Leonel Rojas Anesthesia Provider: Carmela Rm Station Repairer: Laura Shetty EBL in mLs: 10 Complications: None Condition: Good
--- NOTE | 2017-11-01 07:09 | OR ---
DATE OF OPERATION: 10/24/2017 SURGEON: Leonel Rojas MD OPERATION PERFORMED: Open reduction and internal fixation of left fibular shaft fracture and left ankle syndesmosis. PREOPERATIVE DIAGNOSIS: Left trimalleolar ankle equivalent fracture. POSTOPERATIVE DIAGNOSIS: Left trimalleolar ankle equivalent fracture. ANESTHESIA: General LMA with local. ANESTHESIA PROVIDER: Carmela Rm. ASSISTANTS: Laura Shetty PA-C. ESTIMATED BLOOD LOSS: 10 mL. COMPLICATIONS: None. CONDITION: Stable. DESCRIPTION OF PROCEDURE: The patient was identified in the preop holding area where proper site was marked and identified by the surgeon. The patient was taken back to the operating theater, where after adequate anesthesia, the patient's left lower extremity had a nonsterile tourniquet applied and was then sterilely prepped and draped in the usual sterile fashion. OR time-out was performed. The patient received 2 g IV Ancef. The left lower extremity was then exsanguinated. Tourniquet was insufflated 250 mmHg. Standard lateral incision was made over the fibula, centered over the fracture site. This was taken down to the fracture site. The fracture site at this time was noted to be significantly comminuted, so lag screw was not an option at this time, so at this time, we decided to a bridging locking plate. At this time, a [id number] reduction clamp was used to pull the fibula out to length in a both AP and lateral views. It was found to be in adequate anatomic alignment. A [place] lateral fibular locking plate was then placed and was secured to the bone both proximally and distally. Again fluoroscopic films were used showing significant adventism of length on both AP and lateral views. At this time, 6 cortices were secured proximally and another nonlocking screw was placed distally. After this, a reduction of the syndesmosis was done and then 2 tricortical 3.5 mm cortical screws were then placed across the syndesmosis for syndesmosis fixation. The ankle mortise was found to be symmetric and stress testing showed no widening of the ankle mortise. At this time, the posterior malleolar piece was also reduced. Adequate saline was then irrigated through the wound. 2-0 Vicryl was used subcutaneously and cyndie were used for the skin. The patient had a sterile soft dressing applied as well as a posterior slab splint and was sent to the PACU in stable condition. The patient did have some runs of what the FARM SUPERVISOR did call ventricular tachycardia. MMHARSH /[id number]
== END | disposition home or self-care (01) ==
LOC: JD.SDS 07:10
PROVIDERS: ATTEND Orthopaedic Surgery
DX: S82.852A Displaced trimalleolar fracture of left lower leg, initial encounter for closed fracture (principal); C50.912 Malignant neoplasm of unspecified site of left female breast; W00.0XXA Fall on same level due to ice and snow, initial encounter; Z88.8 Allergy status to other drugs, medicaments and biological substances; Z79.82 Long term (current) use of aspirin; Z79.899 Other long term (current) drug therapy; Z85.3 Personal history of malignant neoplasm of breast
CPT/HCPCS: 36415; 76000; 76000-26; 80048; 83735; A9270-GY; J0690; J1100; J1170; J2250; J2405; J2704; J3010; J3490; J7120

== ENCOUNTER 2020-04-14 09:59 | Day surgery (SDC) | payer BC ==
[~2020-04-14 09:59] MED LIST changes: +Acetaminophen 325 MG Tab PO SCH; -Acetaminophen/HYDROcodone 325-5 MG Tab PO PRN; +Acetaminophen/oxyCODONE 325-5 MG Tab PO PRN; +Bisacodyl 5 MG Tab PO PRN; -Bupivacaine 0.25% 30 ML SDV ONE; +Cyclobenzaprine 10 MG Tab PO PRN; -Dexamethasone 4 MG/ML SDV ONE; +EPINEPHrine 1 MG/ML SDV ONE; -HYDROmorphone 0.5 MG/0.5 ML Syringe IVPUSH ONE; -HYDROmorphone 0.5 MG/0.5 ML Syringe ONE; -Ketamine 500 mg/10 ML MDV ONE; +Ketorolac 15 MG/ML SDV IVPUSH PRN; -Lactated Ringers 1,000 ML ONE; +Magnesium Hydroxide 400 MG/5 ML Susp 30 ML Cup PO PRN; -Metoprolol Tartrate 5 MG/5 ML SDV IVPUSH ONE; -Metoprolol Tartrate 5 MG/5 ML SDV ONE; -Midazolam 1 MG/ML 2 ML SDV ONE; +Morphine 8 MG, EPINEPHrine 0.3 MG, Cefuroxime 750 MG, Ketorolac 30 MG, Sodium Chloride ... PRN; -Ondansetron 4 MG/2 ML SDV ONE; +Pregabalin 25 MG Cap PO SCH; -Propofol 200 MG/20 ML SDV ONE; +Ropivacaine 0.5% 5 MG/ML 30 ML SDV ONE; +Sennosides 8.6 MG Tab PO PRN; -ceFAZolin 1 GM Vial ONE; -diphenhydrAMINE 50 MG/ML SDV IVPUSH PRN; -fentaNYL 100 MCG/2 ML SDV IVPUSH PRN; -fentaNYL 100 MCG/2 ML SDV ONE; -fentaNYL 250 MCG/5 ML SDV ONE; +oxyCODONE ER 10 MG TAB.ER PO SCH
[2020-04-14] MEDS ORDERED: Vancomycin 1 GM SDV ONE (10:07)
[2020-04-14] MEDS ORDERED: Bupivacaine 0.25% 10 ML SDV ONE (10:07)
--- NOTE | 2020-04-14 10:34 | PCM.PREANE ---
Preanesthetic Assessment - Procedure Proposed Procedure: Left total knee replacement - Anesthesia/Transfusion/Family Hx Anesthesia History: Prior Anesthesia Without Reaction Family History of Anesthesia Reaction: Yes (nausea) Transfusion History: No Prior Transfusion(s) - Review of Systems General: No Symptoms Pulmonary: No Symptoms Cardiovascular: Dyspnea on Exertion Gastrointestinal: No Symptoms Neurological: Numbness (left hand) Other: Reports: None - Physical Assessment NPO Status Date: 04/13/20 NPO Status Time: 00:00 Vital Signs: Last Vital Signs Temp 36.8 C 04/14/20 10:00 Pulse 74 04/14/20 10:00 Resp 16 04/14/20 10:00 BP 154/85 H 04/14/20 10:00 Pulse Ox 95 04/14/20 10:00 Height: 1.55 m Weight: 111.13 kg ASA Class: 2 Mental Status: Alert & Oriented x3 Airway Class: Mallampati = 1 Dentition: Reports: Normal Dentition Thyro-Mental Finger Breadths: 3 Mouth Opening Finger Breadths: 3 ROM/Head Extension: Full Lungs: Clear to Auscultation, Normal Respiratory Effort Cardiovascular: Regular Rate, Regular Rhythm - Lab Values: Laboratory Last Values SARS-CoV-2 (PCR) Not detected (NOT DETECT) 04/10/20 09:30 MRSA (PCR) Negative 04/02/20 16:12 - Imaging/EKG Impressions: EKG SR 04/01/2020 - Allergies Allergies/Adverse Reactions: Allergies Allergy/AdvReac Type Severity Reaction Status Date / Time adhesive Allergy Rash Verified 04/11/20 14:27 Iodinated Contrast Media Allergy Hives Verified 04/11/20 14:27 wool Allergy Hives Verified 04/11/20 14:27 - Anesthesia Plan Pre-Op Medication Ordered: None - Acknowledgements Anesthesia Type Planned: Spinal Pt an Appropriate Candidate for the Planned Anesthesia: Yes Alternatives and Risks of Anesthesia Discussed w Pt/Guardian: Yes Pt/Guardian Understands and Agrees with Anesthesia Plan: Yes PreAnesthesia Questionnaire HEENT History: Reports: Impaired Vision Cardiovascular History: Reports: Other (See Below) Other Cardiovascular History: vtach in previous surgery, holter monitor applied post operatively, was negative. Respiratory History: Reports: None Gastrointestinal History: Reports: Other (See Below) Other Gastrointestinal History: lactose intolerance, ulcerative colitis Genitourinary History: Reports: None NUT GRADER History: Reports: None Musculoskeletal History: Reports: Other (See Below) Other Musculoskeletal History: left knee pain, left ankle fracture Neurological History: Reports: None Psychiatric History: Reports: None Endocrine/Metabolic History: Reports: None Hematologic History: Reports: None Immunologic History: Reports: Immunosuppression, Other (See Below) Other Immunologic History: patient currently taking chemotherapy via port every 3 weeks for breast cancer (last infusion was October 05) Oncologic (Cancer) History: Reports: Breast, Other (See Below) Other Oncologic History: breast cancer with metasasis Dermatologic History: Reports: None - Infectious Disease History Infectious Disease History: Reports: Chicken Pox - Past Surgical History Head Surgeries/Procedures: Reports: None HEENT Surgical History: Reports: Oral Surgery Cardiovascular Surgical History: Reports: None Respiratory Surgical History: Reports: None GI Surgical History: Reports: Colonoscopy Female Surgical History: Reports: Breast Biopsy Male Surgical History: Reports: None Endocrine Surgical History: Reports: None Neurological Surgical History: Reports: None Musculoskeletal Surgical History: Reports: Other (See Below) Other Musculoskeletal Surgeries/Procedures:: left ankle repair Oncologic Surgical History: Reports: None Dermatological Surgical History: Reports: None - SUBSTANCE USE Smoking Status *Q: Never Smoker Tobacco Use Within Last Twelve Months: No Second Hand Smoke Exposure: Yes Days Per Week of Alcohol Use: 1 Number of Drinks Per Day: 0 Total Drinks Per Week: 0 Recreational Drug Use History: No - HOME MEDS Home Medications: Home Meds Aspirin [Ecotrin EC] 81 mg PO DAILY 10/17/17 [History] Anastrozole [Arimidex] 1 mg PO DAILY 04/11/20 [History] Calcium Carb/Vitamin D3/Vit K1 [Calcium + D Soft Chewable Tab] 1 tab PO DAILY 04/11/20 [History] Cholecalciferol (Vitamin D3) [Vitamin D3] 5,000 unit PO DAILY 04/11/20 [History] Magnesium 250 mg PO DAILY 04/11/20 [History] Acetaminophen/oxyCODONE [Percocet 325-5 MG] 1 - 2 tab PO Q4H PRN #60 tablet 04/14/20 [Rx] Cyclobenzaprine [Flexeril] 10 mg PO BID PRN #20 tablet 04/14/20 [Rx] Docusate Sodium [Colace] 100 mg PO BID cap 04/14/20 [Rx] Magnesium Hydroxide [Milk of Magnesia] 30 ml PO BID PRN cup 04/14/20 [Rx] Rivaroxaban [Xarelto] 10 mg PO DAILY #30 tablet 04/14/20 [Rx] Sennosides [Senna] 8.6 mg PO BID PRN tablet 04/14/20 [Rx] bisacodyL [Dulcolax] 5 mg PO DAILY PRN tablet 04/14/20 [Rx] - CURRENT (IN HOUSE) MEDS Current Meds: Current Medications Acetaminophen (Tylenol) 975 mg PO ONETIME ARNAUD Stop: 04/14/20 14:00 Last Admin: 04/14/20 10:11 Dose: 975 mg Documented by: Bisacodyl (Dulcolax) 5 mg PO DAILY PRN PRN Reason: Constipation Morphine Sulfate 8 mg/Epinephrine HCl 0.3 mg/Cefuroxime Sodium 750 mg/Ketorolac Tromethamine 30 mg/Sodium Chloride 7.9 ml 0 mg .XX ASDIRECTED PRN PRN Reason: Pain Stop: 04/14/20 14:00 Cyclobenzaprine HCl (Flexeril) 10 mg PO TID PRN PRN Reason: Spasms Docusate Sodium (Colace) 100 mg PO BID [facility] Lactated Ringer's (Ringers, Lactated) 1,000 mls @ 125 mls/hr IV ASDIRECTED ARNAUD Stop: 04/14/20 23:00 Cefazolin Sodium/Dextrose 2 gm (/ Premix) 50 mls @ 100 mls/hr IV Q8H [facility] Stop: 04/14/20 22:29 Ketorolac Tromethamine (Toradol) 15 mg IVPUSH Q6H PRN PRN Reason: Pain Lidocaine/Sodium Bicarbonate (Buffered Lidocaine 1% In Ns 8.4%) 0.25 ml IDERM ONETIME PRN PRN Reason: Prior to IV Start Stop: 04/14/20 18:00 Magnesium Hydroxide (Milk Of Magnesia) 30 ml PO BID PRN PRN Reason: Constipation Oxycodone HCl (Oxycontin) 10 mg PO ONETIME [facility] Stop: 04/14/20 14:00 Last Admin: 04/14/20 10:10 Dose: 10 mg Documented by: Oxycodone/Acetaminophen (Percocet 325-5 Mg) 1 - 2 tab PO Q4H PRN PRN Reason: Pain Pregabalin (Lyrica) 50 mg PO ONETIME [facility] Stop: 04/14/20 14:00 Last Admin: 04/14/20 10:11 Dose: 50 mg Documented by: Rivaroxaban (Xarelto) 10 mg PO DAILY [facility] Senna (Senna) 8.6 mg PO BID PRN PRN Reason: Constipation Sodium Chloride (Saline Flush) 10 ml FLUSH ASDIRECTED PRN PRN Reason: Keep Vein Open Stop: 04/14/20 18:00 Discontinued Medications Bupivacaine HCl (Sensorcaine-Mpf 0.25%) Confirm Administered Dose 20 ml .ROUTE .STK-MED ONE Stop: 04/14/20 10:08 Epinephrine HCl (Adrenalin) Confirm Administered Dose 1 mg .ROUTE .STK-MED ONE Stop: 04/14/20 07:45 Ropivacaine (Naropin 0.5%) Confirm Administered Dose 30 ml .ROUTE .STK-MED ONE Stop: 04/14/20 07:45 Tranexamic Acid (Cyklokapron) Confirm Administered Dose 1,000 mg .ROUTE .STK-MED ONE Stop: 04/14/20 10:08 Triamcinolone Acetonide (Kenalog-40) Confirm Administered Dose 80 mg .ROUTE .STK-MED ONE Stop: 04/14/20 10:08 Vancomycin HCl (Vancomycin) Confirm Administered Dose 1 gm .ROUTE .STK-MED ONE Stop: 04/14/20 10:08
[2020-04-14] MEDS ORDERED: Propofol 200 MG/20 ML SDV ONE ×2 (10:47→11:48)
[2020-04-14] MEDS ORDERED: Ondansetron 4 MG/2 ML SDV ONE (10:47)
[2020-04-14] MEDS ORDERED: fentaNYL 100 MCG/2 ML SDV ONE (10:47)
[2020-04-14] MEDS ORDERED: ceFAZolin 1 GM Vial ONE (10:48)
[2020-04-14] MEDS ORDERED: Lidocaine 1% 4 ML ONE (10:48)
[2020-04-14] MEDS ORDERED: Midazolam 1 MG/ML 2 ML SDV ONE (10:48)
[2020-04-14] MEDS ORDERED: Lactated Ringers 1,000 ML ONE (11:22)
[2020-04-14] MEDS ORDERED: ePHEDrine Sulfate/0.9% NaCl/Pf 25 MG/5 ML SYRINGE IV ONE (11:29)
[2020-04-14] MEDS: Bupivacaine 0.25% 10 ML SDV ONE ×3 (12:09→12:42)
[2020-04-14] MEDS: Triamcinolone Acetonide 40 MG/ML 1 ML SDV ONE ×2 (12:27→12:42)
--- NOTE | 2020-04-14 13:07 | PCM.POSTAN ---
POST ANESTHESIA ASSESSMENT - MENTAL STATUS Mental Status: Alert, Oriented - VITAL SIGNS Vital Signs: Last Vital Signs Temp 37.1 C 04/14/20 13:00 Pulse 85 04/14/20 13:00 Resp 15 04/14/20 13:00 BP 94/60 04/14/20 13:00 Pulse Ox 95 04/14/20 13:00 - RESPIRATORY Respiratory Status: Respiratory Rate WNL, Airway Patent, O2 Saturation Stable - CARDIOVASCULAR CV Status: Pulse Rate WNL, Blood Pressure Stable - GASTROINTESTINAL GI Status: No Symptoms - PAIN Pain Score: 0 - POST OP HYDRATION Hydration Status: Adequate & Stable - OBSERVATIONS Free Text/Narrative:: no anesthesia complications noted
--- NOTE | 2020-04-14 13:09 | PCM.SN.2 ---
- Free Text/Narrative Note: Left selective femoral nerve block at the adductor canal for post-procedure pain control under US guidance requested by Dr. Rojas. Time Out: 1250 Start: 1250 End: 1257 Chart reviewed. Consent signed. Questions answered. Appropriate monitors applied. Time out performed. Left mid-shaft femur identified with ultrasound, scanning medially of femur, the femoral artery in the adductor canal visualized, and the femoral nerve located laterally to the artery. The skin was prepped lateral to the ultrasound probe with chlorahexadine times two. The 21ga 4 insulated block needle was inserted under direct ultrasound guidance into the adductor canal. 25 mL of 0.5% ropivacaine with 1:200,000 epinephrine was injected circumferentially around the nerve with intermittent negative aspiration noted. Patient tolerated the procedure well. Sterile technique noted along with sterile gloves, mask, and sterile probe cover. See picture on progress note and vital signs on nurses notes. Block completed in PACU. Pasha Zuleta CRNA
--- NOTE | 2020-04-14 13:32 | CR ---
Left knee: AP and lateral views of the left knee were obtained. Comparison: No previous knee study. Knee prosthesis is seen. Components are aligned. Soft tissue air is noted from the surgical procedure. Underlying bony structures are intact. Impression: 1. Satisfactory postop radiographic appearance of recently placed left knee prosthesis. Diagnostic code #2 This report was dictated in MDT
--- NOTE | 2020-04-14 14:43 | PCM48HPAN ---
Post Anesthesia Note - EVALUATION WITHIN 48HRS OF ANESTHETIC Vital Signs in Normal Range: Yes Patient Participated in Evaluation: Yes Respiratory Function Stable: Yes Airway Patent: Yes Cardiovascular Function Stable: Yes Hydration Status Stable: Yes Pain Control Satisfactory: Yes Nausea and Vomiting Control Satisfactory: Yes Mental Status Recovered: Yes Vital Signs: Last Vital Signs Temp 37.1 C 04/14/20 14:05 Pulse 81 04/14/20 14:35 Resp 17 04/14/20 14:35 BP 133/78 04/14/20 14:35 Pulse Ox 95 04/14/20 14:35 - COMMENTS/OBSERVATIONS Free Text/Narrative:: no anesthesia complications noted
--- NOTE | 2020-04-14 17:20 | PCM.OPNOTE ---
- General Post-Op/Procedure Note Date of Surgery/Procedure: 04/14/20 Operative Procedure(s): left total knee arthroplasty with right knee corticosteroid injection Pre Op Diagnosis: bilateral knee osteoarthrosis Post-Op Diagnosis: Same Anesthesia Technique: Local, MAC, Spinal Primary Surgeon: Leonel Rojas Anesthesia Provider: Pasha Zuleta Snuff Grinder And Screener: Laura Shetty Snuff Grinder And Screener: Britta Narvaez EBL in mLs: 5 Complications: None Condition: Good Free Text/Narrative:: Intake & Output 04/14/20 04/14/20 04/14/20 06:59 14:59 22:59 Intake Total 225 450 Balance 225 450 4/4 9mm 29x9 cemented
[2020-04-14] MEDS ORDERED: ceFAZolin 2 GM in Premix Bag 1 BAG IV SCH (19:00)
[2020-04-14] MEDS ORDERED: Docusate Sodium 100 MG Cap PO SCH (21:00)
[2020-04-15] MEDS ORDERED: Rivaroxaban 10 MG Tab PO SCH (09:00)
--- NOTE | 2020-04-21 09:57 | OR ---
DATE OF OPERATION: 04/14/2020 SURGEON: Leonel Rojas MD OPERATION PERFORMED: Left total knee arthroplasty with right knee corticosteroid injection. PREOPERATIVE DIAGNOSIS: Bilateral knee osteoarthrosis. POSTOPERATIVE DIAGNOSIS: Bilateral knee osteoarthrosis. ANESTHESIA: Local MAC with spinal. ANESTHESIA PROVIDER: Pasha Zuleta CRNA. ASSITANTS: Laura Shetty PA-C and Britta Narvaez LPN. ESTIMATED BLOOD LOSS: 5 mL. COMPLICATIONS: None. CONDITION: Stable. IMPLANTS: 1. [place] size 4 cemented PS femur. 2. [place] size 4 cemented [place] tibial baseplate. 3. Ish size 4, 9 mm PS X3 polyethylene. 4. [place] size 29 x 9 mm cemented asymmetric patella. DESCRIPTION OF PROCEDURE: The patient was identified in the preop holding area. Proper site was marked and identified by the surgeon. The patient was taken back to the operating theater. After adequate anesthesia, the patient's left lower extremity had a nonsterile tourniquet applied and it was sterilely prepped and draped in the usual sterile fashion. OR time-out was performed. The patient received 2 g IV Ancef. At this time, the left lower extremity was exsanguinated. Tourniquet was insufflated to 300 mmHg. Standard medial parapatellar incision was made. Medial parapatellar arthrotomy was created. Deep fibers of the MCL were raised and anterior fat pad was resected. At this time, attention was turned to the patella. Patella measured 21, it was resected to a 13 for 29 x 9 mm patella. Drill holes were then drilled and found to be in adequate position. The drill was then drilled in the distal femur and the intramedullary distal femoral cutting guide was then placed. 8 mm was resected off the distal femur and was found to be an adequate resection. Sizing guide was placed. It was found to be a size 4 cemented PS femur that was shown on the implant record at the beginning of this dictation. The drill holes were drilled for the epicondylar axis using [place] line and epicondyles as reference. At this time, the 4-in-1 cutting block was placed. An anterior posterior and anterior and posterior chamfer cuts were then completed. Box cut was completed at this time. Attention was turned to the tibia. The posterior medial lateral retractors were placed. The extramedullary tibial guide was placed. It was placed in the old footprint of the ACL. It was aligned with the center of the ankle and 0 degrees of slope, 9 mm was then resected off the unaffected side. There was found to be an acceptable reduction. At this time, posterior osteophytes were removed along with medial and lateral meniscus. A trial implant was placed with a correct sized tibia that was mentioned at the beginning of the dictation. A [place] size 4, 9 mm PS X3 polyethylene insert was then placed. The patient's knee was brought through range of motion. The patella was tracking centrally and was stable to varus and valgus stress. Alignment was found to be roughly at 0 degrees. The tibia was stamped and drilled in proper rotation. All cut surfaces were irrigated and dried. The universal tibial base plate was impacted in place. Next, the Ish size 4 cemented PS femur impacted into place and the [place] size 4, 9 mm PS X3 polyethylene insert was placed. The patient's knee was brought into full extension. The patella was then cemented in place at this time. Excess cement was removed. One liter dilute Betadine solution was irrigated through the knee along with 3 L of pulse lavage irrigation with Ancef. Periarticular injection was then completed. The patient's knee was brought through a range of motion. Once the cement had time to set up and it was found to be stable to varus valgus stress, the patella was tracking centrally with full range of motion. At this time, a #2 barbed suture was used for closure of the medial parapatellar arthrotomy. Topical tranexamic acid was placed. 2-0 Vicryl was used subcutaneously, Prineo was used for the skin. The patient tolerated the procedure well and was sent to the PACU in stable condition. After this was completed under sterile technique, 2 mL of 40 mg Kenalog and 4 mL of 0.25% percent Marcaine was injected to the right knee. TRENA /[id number] TUSHAR
== END 2020-04-14 16:31 | disposition home or self-care (01) ==
LOC: JD.SDS 09:59
PROVIDERS: ATTEND Orthopaedic Surgery
DX: M17.0 Bilateral primary osteoarthritis of knee (principal); C50.919 Malignant neoplasm of unspecified site of unspecified female breast; Z01.812 Encounter for preprocedural laboratory examination; Z20.828 Contact with and (suspected) exposure to other viral communicable diseases; Z91.048 Other nonmedicinal substance allergy status; Z79.82 Long term (current) use of aspirin; Z79.899 Other long term (current) drug therapy; Z98.890 Other specified postprocedural states
CPT/HCPCS: 27447; 73560; 87635; 87641; 97110; 97116; 97161; A9270; C1713; C1776; J0171; J0690; J0697; J1885; J2001; J2250; J2270; J2405; J2704; J2795; J3010; J3301; J3370; J3490; J7120; 01402; 64450; U0002

== ENCOUNTER 2023-10-24 06:30 | Day surgery (SDC) | payer BC ==
[~2023-10-24 06:30] MED LIST changes: -Acetaminophen 325 MG Tab PO SCH; -Acetaminophen/oxyCODONE 325-5 MG Tab PO PRN; -Bisacodyl 5 MG Tab PO PRN; -Cyclobenzaprine 10 MG Tab PO PRN; -EPINEPHrine 1 MG/ML SDV ONE; -Ketorolac 15 MG/ML SDV IVPUSH PRN; -Lactated Ringers 1,000 ML IV SCH; +Lidocaine 1% 5 ML VIAL ONE; -Lidocaine 1%/Sod Bicarbonate in NS 8.4% 1 ML Syringe IDERM PRN; -Magnesium Hydroxide 400 MG/5 ML Susp 30 ML Cup PO PRN; +Midazolam 1 MG/ML 2 ML SDV ONE; +Ondansetron 4 MG/2 ML SDV ONE; -Pregabalin 25 MG Cap PO SCH; +Propofol 200 MG/20 ML SDV ONE; -Ropivacaine 0.5% 5 MG/ML 30 ML SDV ONE; -Sennosides 8.6 MG Tab PO PRN; +Sodium Chloride 0.9% 10 ML Syringe FLUSH SCH; +ceFAZolin 2 GM Vial ONE; +fentaNYL 100 MCG/2 ML SDV ONE; -oxyCODONE ER 10 MG TAB.ER PO SCH
[2023-10-24] MEDS: Lactated Ringers 1,000 ML IV SCH (06:45)
[2023-10-24] MEDS ORDERED: HYDROmorphone 0.5 MG/0.5 ML Syringe IVPUSH PRN (07:11)
[2023-10-24] MEDS ORDERED: fentaNYL 100 MCG/2 ML SDV IVPUSH PRN (07:11)
[2023-10-24] MEDS ORDERED: Ondansetron 4 MG/2 ML SDV IVPUSH PRN (07:11)
[2023-10-24 07:28] LABS: INR 0.96; PROTHROMBIN TIME 10.3 SECONDS (9.7-12.0)
[2023-10-24] MEDS ORDERED: EPINEPHrine 1 MG/ML SDV ONE (07:32)
[2023-10-24] MEDS ORDERED: Ropivacaine 0.5% 5 MG/ML 30 ML SDV ONE (07:32)
[2023-10-24] MEDS ORDERED: Lactated Ringers 1,000 ML ONE (08:13)
[2023-10-24] MEDS ORDERED: ePHEDrine 50 MG/ML SDV ONE (08:36)
[2023-10-24] MEDS ORDERED: Dexamethasone 4 MG/ML 5 ML MDV ONE (08:51)
[2023-10-24] MEDS ORDERED: Phenylephrine 1% 10 MG/ML SDV ONE (08:53)
[2023-10-24] MEDS ORDERED: dexmedeTOMIDine HCl 200 MCG/2 ML SDV ONE (09:10)
[2023-10-24] MEDS: Morphine 8 MG, EPINEPHrine 0.3 MG, Cefuroxime 750 MG, Ketorolac 30 MG, Sodium Chloride ... PRN (09:35)
[2023-10-24] MEDS ORDERED: Propofol 200 MG/20 ML SDV ONE (09:39)
[2023-10-24] MEDS: Tranexamic Acid 1,000 MG/10 ML Vial ONE (09:40)
[2023-10-24] MEDS: Vancomycin 1 GM SDV ONE (09:40)
[2023-10-24] MEDS ORDERED: Ketorolac 30 MG/ML SDV ONE (10:02)
[2023-10-24] MEDS: oxyCODONE 5 MG Tab PO PRN (12:38)
[2023-10-24] MEDS: oxyCODONE 5 MG Tab PO SCH (14:34)
== END 2023-10-24 16:05 | disposition home or self-care (01) ==
LOC: JD.SDS 06:30
PROVIDERS: ATTEND Orthopaedic Surgery
DX: M17.11 Unilateral primary osteoarthritis, right knee (principal); E66.9 Obesity, unspecified; Z68.42 Body mass index [BMI] 45.0-49.9, adult; Z79.60 Long term (current) use of unspecified immunomodulators and immunosuppressants; Z79.899 Other long term (current) drug therapy; Z91.048 Other nonmedicinal substance allergy status
CPT/HCPCS: 0055T; 27447; 36415; 64447; 73560; 85610; 85730; 97116; 97161; A9270; C1713; C1776; J0171; J0690; J0697; J1100; J1885; J2250; J2270; J2371; J2405; J2704; J2795; J3010; J3370; J7120; 01402; J3490